=== PATIENT | male | born 1960 | race Caucasian/White ===

== ENCOUNTER 2019-10-04 18:15 | Emergency (ER) | payer OTHER ==
--- NOTE | 2019-10-04 18:54 | ER Document Report ---
ED General <STEPHON CRISTOBAL - Last Filed: 10/04/19 22:56> <PAOJC Birgit - Last Filed: 10/04/19 23:08> - General Chief Complaint: Foot Pain Stated Complaint: POSSIBLE OVERHEATING/JOINT PAIN Time Seen by Provider: 10/04/19 18:46 [facility] Provider: [facility] [Primary [facility]] - Follow up as needed Notes: Patient is a 58-year-old male with no past medical history who presents the emergency department with a chief complaint of possibly being dehydrated. 3 days ago he was at work and he twisted his ankle and also felt he did not drink enough fluids. The next day he drink plenty of fluids and went back to work. Patient states that he has pain all over his body in his joints. He denies any fever. States that most of his pain is in his shoulders. He attempted to take ibuprofen, but did not have any relief of his pain. States that he now cannot lift his arms up. Patient has a history of ADHD and bipolar disorder. He is currently on Adderall and Seroquel. (STEPHON CRISTOBAL) - Related Data Allergies/Adverse Reactions: No Known Allergies Allergy (Unverified 09/08/11 23:31) Past Medical History - General Information source: Patient - Social History Smoking Status: Never Smoker Family History: Reviewed & Not Pertinent Patient has homicidal ideation: No Psychiatric Medical History: Reports: Hx Attention Deficit Hyperactivity Disorder, Hx Bipolar Disorder Past Surgical History: Reports: Hx Cholecystectomy, Hx Orthopedic Surgery - right knee - Immunizations Hx Diphtheria, Pertussis, Tetanus Vaccination: Yes <STEPHON CRISTOBAL - Last Filed: 10/04/19 22:56> Review of Systems <STEPHON CRISTOBAL - Last Filed: 10/04/19 22:56> - Review of Systems Notes: REVIEW OF SYSTEMS: CONSTITUTIONAL : Denies recent illness. Denies recent unintentional weight loss. See HPI. EENT: Denies eye, ear, throat, or mouth pain, discharge, or symptoms. Denies nasal or sinus congestion. CARDIOVASCULAR: Denies chest pain. RESPIRATORY: Denies shortness of breath, cough, congestion, difficulty breathing, or wheezing. GASTROINTESTINAL: Denies nausea, vomiting, and diarrhea. Denies abdominal pain. Denies constipation. GENITOURINARY: Denies difficulty urinating, burning, blood in urine, urgency or frequency. MUSCULOSKELETAL: See HPI. SKIN: Denies rash, itchiness, or lesions HEMATOLOGIC : Denies easy bruising or bleeding. LYMPHATIC: Denies swollen, painful, enlarged glands. NEUROLOGICAL: Denies no numbness or tingling denies weakness. Denies headache. Denies altered mental status. Denies alteration in speech. PSYCHIATRIC: Denies stress, anxiety, alteration in sleep patterns, or depression. All other systems reviewed and negative. (STEPHON CRISTOBAL) Physical Exam <STEPHON CRISTOBAL - Last Filed: 10/04/19 22:56> - Vital signs Vitals: Temp Pulse Resp BP Pulse Ox 98.5 F 94 20 154/86 H 97 10/04/19 18:26 10/04/19 18:26 10/04/19 18:26 10/04/19 18:26 10/04/19 18:26 - Notes Notes: PHYSICAL EXAMINATION: GENERAL: Appears well, healthy, well-nourished, no acute distress. HEAD: Normocephalic, atraumatic. EYES: PERRL, conjunctiva normal, all extraocular movements intact, sclera nonicteric ENT: Moist mucous membranes. NECK: Supple, no noticeable swelling, redness, rash. Normal range of motion. LUNGS: Equal breath sounds bilaterally and clear to auscultation. No wheezes rales or rhonchi. CARDIOVASCULAR: S1-S2, regular rate, regular rhythm. Radial pulses 2+, normal. ABDOMEN: Normoactive bowel sounds. Soft, nontender, no guarding, no rebound tenderness, and no masses palpated. EXTREMITIES: Normal strength and range of motion, no pitting or edema. No cyanosis. NEUROLOGICAL: Moves all extremities upon command. Tenderness noted to bilateral shoulders upon palpation. PSYCH: Normal mood, normal affect. SKIN: Warm, dry. No rash, lesions, ulcerations noted. Normal skin turgor. (STEPHON CRISTOBAL) Course - Laboratory Result Diagrams: 10/04/19 19:25 10/04/19 19:25 <STEPHON CRISTOBAL - Last Filed: 10/04/19 22:56> - Laboratory Result Diagrams: 10/04/19 19:25 10/04/19 19:25 <JC CEDENO - Last Filed: 10/04/19 23:08> - Re-evaluation Re-evalutation: 10/04/19 20:10 Hematology shows a leukocytosis of 12, with a left shift with 82.5% neutrophils. Chemistries are rather unremarkable. Glucose is 162. CK was normal. Bedside report given to SAJI Tony. She will follow-up with the patient's shoulder x-rays. (STEPHON CRISTOBAL) 10/04/19 23:07 Bilateral shoulder x-rays are negative. Patient's labs are reassuring. Patient does not have any rash and has had no known tick bites and has not been anywhere near where he believes ticks would be. Patient reports moderate relief of his pain after administration of IV Toradol 15 mg here in the emergency department. I discussed the case with my attending physician, Dr. Nuno. I will plan to discharge patient home with a prescription for Toradol. He will call his primary care provider to schedule an appointment tomorrow. He understands ED return precautions. (JC CEDENO) - Vital Signs Vital signs: Temp Pulse Resp BP Pulse Ox 98.5 F 94 20 154/86 H 97 10/04/19 18:41 10/04/19 18:26 10/04/19 18:26 10/04/19 18:26 10/04/19 18:26 - Laboratory Laboratory results interpreted by me: 10/04/19 10/04/19 10/04/19 19:25 19:25 20:36 WBC 12.0 H Lymph % (Auto) 6.5 L Absolute Neuts (auto) 9.9 H Seg Neutrophils % 82.5 H Sodium 134.8 L Glucose 162 H ALT 52 H Alkaline Phosphatase 182 H Creatine Kinase 34 L Urine Protein 100 H Urine Glucose (UA) >=500 H Urine Blood SMALL H Urine Urobilinogen 4.0 H Discharge <STEPHON CRISTOBAL - Last Filed: 10/04/19 22:56> <JC CEDENO - Last Filed: 10/04/19 23:08> - Discharge Clinical Impression: Joint pain Qualifiers: Joint pain location: shoulder Laterality: bilateral Qualified Code(s): M25.511 - Pain in right shoulder Condition: Stable Disposition: HOME, SELF-CARE Additional Instructions: Please take the Toradol as prescribed for your pain. As discussed, tomorrow you may take ibuprofen if you cannot get the Toradol filled until the evening. Please call tomorrow to schedule an appointment with your primary care team. Please return to the emergency department immediately if you worsen in any way or you develop a fever. Prescriptions: Ketorolac Tromethamine [Toradol 10 mg Tablet] 10 mg PO Q6HP PRN #20 tablet PRN Reason: Forms: Return to Work Referrals: [facility] [Primary [facility]] - Follow up as needed
[2019-10-04] MEDS ORDERED: NORMAL SALINE 1000 ML 1,000 ML IV ONE (19:05)
[2019-10-04] MEDS ORDERED: ACETAMINOPHEN 325 MG TABLET PO ONE (19:05)
[2019-10-04 19:33] LABS: ABSOLUTE BASOPHILS # (AUTO) 0.1 10^3/uL (0.0-0.2); ABSOLUTE LYMPHOCYTES (AUTO) 0.8 10^3/uL (0.5-4.7); ABSOLUTE MONOCYTES (AUTO) 1.2 10^3/uL (0.1-1.4); ABSOLUTE NEUT (AUTO) 9.9 10^3/uL (1.7-8.2); BASOPHILS % (AUTO) 0.8 % (0-2); EOSINOPHILS % (AUTO) 0.1 % (0-6); HEMATOCRIT 39.5 % (37.9-51.0); HEMOGLOBIN 13.7 g/dL (13.5-17.0); LYMPHOCYTES % (AUTO) 6.5 % (13-45); MEAN CORPUSCULAR HEMOGLOBIN 29.3 pg (27.0-33.4); MEAN CORPUSCULAR HGB CONC 34.6 g/dL (32.0-36.0); MEAN CORPUSCULAR VOLUME 85 fl (80-97); MONOCYTES % (AUTO) 10.1 % (3-13); PLATELET COUNT 286 10^3/uL (150-450); RED BLOOD COUNT 4.67 10^6/uL (4.35-5.55); RED CELL DISTRIBUTION WIDTH 13.2 % (11.5-14.0); SEGMENTED NEUTROPHILS % (AUTO) 82.5 % (42-78); TOTAL CELLS COUNTED % (AUTO) 100 %
[2019-10-04 19:44] LABS: ALBUMIN 3.9 g/dL (3.5-5.0); ALKALINE PHOSPHATASE 182 U/L (38-126); ANION GAP 10 (5-19); ASPARTATE AMINO TRANSFERASE 57 U/L (17-59); BILIRUBIN,DIRECT 0.4 mg/dL (0.0-0.4); BLOOD UREA NITROGEN 17 mg/dL (7-20); CALCIUM 9.1 mg/dL (8.4-10.2); CARBON DIOXIDE 22 mmol/L (22-30); CHLORIDE 103 mmol/L (98-107); CREATINE KINASE 34 U/L (55-170); GLUCOSE 162 mg/dL (75-110); POTASSIUM 4.3 mmol/L (3.6-5.0); TOTAL PROTEIN 7.1 g/dL (6.3-8.2)
--- NOTE | 2019-10-04 20:50 | RADIOLOGY REPORT (SQ) ---
EXAM DESCRIPTION: XR SHOULDER 2 OR MORE VIEWS BILATERAL COMPLETED DATE/TME: 10/04/2019 19:40 CLINICAL HISTORY: 58 years, Male, bilateral shoulder pain; no injury COMPARISON: None. NUMBER OF VIEWS: TECHNIQUE: LIMITATIONS: None. FINDINGS: 3 views of the right shoulder and 3 views of the left shoulder were obtained. No fracture or dislocation. The acromioclavicular joints appear intact. Mineralization of bone appears normal. There are no soft tissue calcifications. IMPRESSION: No acute finding. copyright 2010 [employer]- All Rights Reserved
[2019-10-04 20:55] LABS: APPEARANCE,URINE CLEAR; BILIRUBIN,URINE NEGATIVE (NEGATIVE); GLUCOSE, URINE >=500 mg/dL (NEGATIVE); KETONES,URINE NEGATIVE (NEGATIVE); LEUKOCYTE ESTERASE,URINE NEGATIVE (NEGATIVE); NITRITE,URINE NEGATIVE (NEGATIVE); PROTEIN,URINE 100 mg/dL (NEGATIVE); URINE SPECIFIC GRAVITY 1.023
[2019-10-04 20:56] LABS: COLOR,URINE DARK YELLOW
[2019-10-04] MEDS ORDERED: KETOROLAC TROMETHAMINE INJ/PF 30 MG/1 ML SDV IV ONE (21:13)
[2019-10-04] MEDS ORDERED: KETOROLAC TROMETHAMINE 60 MG/2 ML SDV IM ONE (23:03)
[2019-10-04 23:39] VITALS: BP 151/96
== END 2019-10-04 23:39 | disposition home or self-care (01) ==
LOC: ER 18:15
DX: M25.511 Pain in right shoulder (principal); M79.671 Pain in right foot; R21 Rash and other nonspecific skin eruption; Z90.49 Acquired absence of other specified parts of digestive tract
CPT/HCPCS: 99283; 96372; 96361; 96374; 36415; 82550; 85025; 80053; 81001; 73030; J1885 ×2; J7030